=== PATIENT | female | born 1995 | race Caucasian/White ===

== ENCOUNTER 2017-10-29 15:27 | Inpatient (IN) | payer BC ==
[2017-10-29] MEDS ORDERED: Sodium Chloride 0.9% 1,000 ML IV STA (16:29)
[2017-10-29] MEDS ORDERED: Clindamycin 600mg/50ml NS 600 MG/50 ML BAG IVPB ONE ×2 (16:29→17:15)
--- NOTE | 2017-10-29 16:34 | ED PDOC ---
HPI: CCC, URI, Sore Throat Time Seen by Provider: 10/29/17 16:22 Chief Complaint (Nursing): ENT Problem History Per: Patient Onset/Duration Of Symptoms: Days (6) Current Symptoms Are (Timing): Still Present Location Of Pain: Throat Associated Symptoms: Fever, Sore Throat Severity: Moderate Pain Scale Rating Of: 3 Additional Complaint(s): Sore throat x 1 week. tx'ed with Augmentin 875 BID x 6 days but has gotten worse. Difficult swallowing but denies SOB. Able to swallow saliva. Past Medical History Vital Signs: Last Vital Signs Temp 97.7 F 10/31/17 08:34 Pulse 68 10/31/17 08:34 Resp 20 10/31/17 08:34 BP 94/61 L 10/31/17 08:34 Pulse Ox 97 10/31/17 08:34 - Medical History PMH: No Chronic Diseases - Family History Family History: States: Unknown Family Hx - Home Medications Home Medications: Ambulatory Orders Medication Instructions Recorded Sertraline [Zoloft] 100 mg PO DAILY 10/29/17 predniSONE [predniSONE Tab] 5 mg PO DAILY 10/29/17 - Allergies Allergies/Adverse Reactions: Allergies Allergy/AdvReac Type Severity Reaction Status Date / Time No Known Allergies Allergy Verified 10/29/17 16:12 Review of Systems Constitutional: Positive for: Fever ENT: Positive for: Throat Pain, Throat Swelling Respiratory: Negative for: Cough Gastrointestinal: Negative for: Nausea, Vomiting Physical Exam - Physical Exam Appears: Positive for: Non-toxic, No Acute Distress Skin: Positive for: Normal Color, Warm, DRY ENT: Positive for: Tonsillar Exudate, Tonsillar Swelling, Other (Tonsils touching unable to see uvula.) Neck: Positive for: Normal Cardiovascular/Chest: Positive for: Regular Rate, Rhythm Respiratory: Positive for: Normal Breath Sounds Extremity: Positive for: Normal ROM Neurologic/Psych: Positive for: Alert, Oriented - Laboratory Results Result Diagrams: 10/31/17 06:05 10/31/17 06:05 - ECG O2 Sat by Pulse Oximetry: 97 Disposition - Clinical Impression Clinical Impression: Tonsillitis, Peritonsillar abscess - Patient ED Disposition Is Patient to be Admitted: Transfer of Care - Disposition Disposition: Transfer of Care Disposition Time: 17:00 Condition: FAIR Patient Signed Over To: Conner Allison III Handoff Comments: Pending CT Neck, Labs, reeval
[2017-10-29] MEDS ORDERED: Dexamethasone 10 MG in Sodium Chloride 0.9% 50 ML IVPB STA (16:39)
[2017-10-29 17:15] LABS: BASO % 0.1 % (0.0-2.0); EOS % 0.1 % (0.0-4.0); HEMOGLOBIN 12.9 g/dL (12.0-16.0); LYMPH # 0.7 K/uL (1.0-4.3); LYMPH % 5.2 % (20.0-40.0); MEAN CELL VOLUME 89.9 fl (81.0-99.0); MEAN CORPUSCULAR HEMOGLOBIN 29.2 pg (27.0-31.0); MEAN CORPUSCULAR HGB CONC 32.5 g/dL (33.0-37.0); MEAN PLATELET VOLUME 6.9 fl (7.2-11.7); MONO # 0.4 K/uL (0.0-0.8); MONO % 2.8 % (0.0-10.0); NEUT # 11.7 K/uL (1.8-7.0); NEUT % 91.8 % (50.0-75.0); PLATELET COUNT 331 K/uL (130-400); RED CELL DISTRIBUTION WIDTH 12.9 % (11.5-14.5); WHITE BLOOD COUNT 12.8 K/uL (4.8-10.8)
--- NOTE | 2017-10-29 17:29 | ED PDOC ---
- Laboratory Results Result Diagrams: 10/29/17 17:04 10/29/17 17:04 - ECG O2 Sat by Pulse Oximetry: 97 (RA) Pulse Ox Interpretation: Normal Medical Decision Making Medical Decision Making: Time: 17:00 --Patient signed over to wi pending CT Head results, labs and reevaluation. Labs are negative for strep and influenza. pt tolerating secretions without drooling Disposition - Clinical Impression Clinical Impression: Tonsillitis - POA Present On Arrival: None - Disposition Disposition: Transfer of Care Disposition Time: 19:16 Condition: STABLE Forms: [facility] (Mongolian) Patient Signed Over To: Narinder Garcia Handoff Comments: pending CT result and dispo/ENT
[2017-10-29 17:44] LABS: ALBUMIN 4.6 g/dL (3.5-5.0); ALT/SGPT 24 U/L (9-52); AST/SGOT 28 U/L (14-36); BLOOD UREA NITROGEN 11 mg/dl (7-17); CALCIUM 9.2 mg/dL (8.4-10.2); GFR AFRICAN-AMERICAN > 60; GFR NON-AFRICAN AMERICAN > 60
[2017-10-29 17:57] LABS: ALB/GLOB RATIO 1.2 (1.0-2.1)
[2017-10-29] MEDS ORDERED: Sodium Chloride 0.9% 50 ML IV ONE (18:09)
[2017-10-29] MEDS ORDERED: Iohexol 300 100 ML IJ ONE (18:09)
[2017-10-29 19:18] LABS: BANDS 2 % (0-2); BASOPHIL 1 % (0-2); LYMPHOCYTE 7 % (20-50); MONOCYTE 2 % (0-10); NEUTROPHIL 88 % (42-75); PLATELET ESTIMATE NORMAL (NORMAL); TOTAL CELLS COUNTED 100
--- NOTE | 2017-10-29 19:25 | ED PDOC ---
- Laboratory Results Result Diagrams: 10/29/17 17:04 10/29/17 17:04 - ECG O2 Sat by Pulse Oximetry: 97 (RA) Pulse Ox Interpretation: Normal Medical Decision Making Medical Decision Making: Time: 19:00 Transfer of care endorsed to nc pending CT neck and reevaluation Time: 19:14 CT Neck soft tissue FINDINGS: Nasopharynx: Unremarkable. Oropharynx: There is tonsillar enlargement bilaterally with enhancement and striations, consistent with pharyngitis. There is a 1.6 x 0.4 cm low-attenuation noted on the right which could reflect an early abscess, (image 30). Larynx: Unremarkable. Normal epiglottis. Trachea: Unremarkable. Retropharyngeal space: Unremarkable. Submandibular/parotid glands: Unremarkable. Glands are normal in size. Thyroid: Unremarkable. No enlarged or calcified nodules. Bones/joints: No acute fracture. Soft tissues: See above. Vasculature: No acute findings. Lymph nodes: There are enlarged lymph nodes identified in both sides of the neck which are presumably related to inflammatory causes although nonspecific. Lung apices: Unremarkable as visualized. IMPRESSION: There is tonsillar enlargement bilaterally with enhancement and striations, consistent with pharyngitis. There is a 1.6 x 0.4 cm low-attenuation noted on the right which could reflect an early abscess. Reports revealed the possibility of an early abscess. Labs were reviewed and are normal. She was given a dose of Zosyn. Time: 20:25 --Consulted with Dr. Becerra --agreed with IV abx and decision to admit Time: 20:27 --Consulted with Dr. Diamond --Will admit patient to Dr. Diamond who is covering for Dr. Guerrero. Scribe Attestation: Documented by Radha Naidu, acting as a scribe for Narinder Garcia MD Provider Scribe Attestation: All medical record entries made by the Scribe were at my direction and personally dictated by me. I have reviewed the chart and agree that the record accurately reflects my personal performance of the history, physical exam, medical decision making, and the department course for this patient. I have also personally directed, reviewed, and agree with the discharge instructions and disposition Disposition Discussed With Dr.: Janes Diamond Counseled Patient/Family Regarding: Studies Performed, Diagnosis - Clinical Impression Clinical Impression: Tonsillitis, Peritonsillar abscess - POA Present On Arrival: None - Disposition Disposition: Hospitalized as Observation Patient Disposition Time: 20:27 Condition: FAIR Patient Signed Over To: Janes Diamond
[2017-10-30] MEDS: Dexamethasone 6 MG in Sodium Chloride 0.9% 50 ML IVPB SCH ×2 (00:18→07:03)
[2017-10-30] MEDS: Dextrose 5%/0.45% NS 1,000 ML IV SCH ×3 (00:18→14:05)
[2017-10-30] MEDS ORDERED: Pneumococcal 23-Valent Vaccine IM ONE ×2 (02:22→10:00)
[2017-10-30] MEDS ORDERED: Influenza Vaccine 18yr & older 0.5 ML/45 MCG SYR IM ONE ×2 (02:22→10:00)
[2017-10-30] MEDS ORDERED: Dexamethasone 6 MG in Sodium Chloride 0.9% 50 ML IVPB SCH (04:00)
[2017-10-30 06:33] LABS: HEMOGLOBIN 13.1 g/dL (12.0-16.0); MEAN CELL VOLUME 89.8 fl (81.0-99.0); MEAN CORPUSCULAR HEMOGLOBIN 29.6 pg (27.0-31.0); MEAN CORPUSCULAR HGB CONC 32.9 g/dL (33.0-37.0); RBC 4.44 Mil/uL (3.80-5.20); RED CELL DISTRIBUTION WIDTH 12.9 % (11.5-14.5); WHITE BLOOD COUNT 8.5 K/uL (4.8-10.8)
[2017-10-30 06:54] LABS: ALB/GLOB RATIO 1.2 (1.0-2.1); ALBUMIN 4.5 g/dL (3.5-5.0); ALT/SGPT 17 U/L (9-52); AST/SGOT 21 U/L (14-36); BLOOD UREA NITROGEN 9 mg/dl (7-17); CALCIUM 9.5 mg/dL (8.4-10.2); GFR AFRICAN-AMERICAN > 60; GFR NON-AFRICAN AMERICAN > 60; T4 8.96 ug/dl (5.5-11.0)
[2017-10-30 07:05] LABS: INR 1.2 (0.9-1.2); PARTIAL THROMBOPLASTIN TIME 29.4 Seconds (25.6-37.1); PROTHROMBIN TIME 13.5 Seconds (9.8-13.1)
[2017-10-30 07:07] LABS: T3 0.882 nmol/L (1.49-2.60)
[2017-10-30] MEDS ORDERED: Lidocaine/Epi 1% 1:100000 20 ML IJ ONE (09:00)
--- NOTE | 2017-10-30 10:03 | CT ---
PROCEDURE: CT NECK WITH CONTRAST HISTORY: r/o peritonsilar abscess COMPARISON: None TECHNIQUE: CT of the neck with intravenous contrast. Coronal and sagittal reformats generated. Intravenous contrast dose: 80 cc Visipaque 300 Radiation dose: DLP 469 mGy-cm This CT exam was performed using one or more of the following dose reduction techniques: Automated exposure control, adjustment of the mA and/or kV according to patient size, and/or use of iterative reconstruction technique. FINDINGS: NASOPHARYNX: Unremarkable. SUPRAHYOID NECK: There is bilateral enlargement of the tonsils with the right tonsillar superficial 10 x 8 mm hypodensity perceived. No definitive peripheral rim of intense enhancement disc suggested. - technical FX versus very early abscess formation here is a consideration. (Badger series 2, image 29 and 30) INFRAHYOID NECK: Unremarkable larynx (there is asymmetry of the aeration of the vallecular line-only air/gas is seen the right vallecula -none is seen in the left vallecula -this can be due to mucous and apposition), hypopharynx, and supraglottic space. Vocal cords intact. MASS: None. GLANDS: Parotid and submandibular glands unremarkable. Normal size thyroid gland, without nodule. LYMPH NODES: Bilateral nonspecific cervical lymph nodes present likely hyperplastic changes relating to patient's inferred tonsillitis CERVICAL SPINE: No fracture or focal lesion. VASCULAR STRUCTURES: Unremarkable. OTHER FINDINGS: None. IMPRESSION: Bilateral tonsillar enlargement with right superficial possible early abscess. The tonsil enlargement results in airway encroachment. The cervical lymph nodes present likely hyperplastic changes relating to patient's inferred tonsillitis Comments: This report is concordant with the preliminary V rad report Sign
[2017-10-30] MEDS: Dexamethasone 4 mg/1 ml IVP SCH ×2 (12:05→18:09)
--- NOTE | 2017-10-30 13:04 | CP.PCM.HP ---
History of Present Illness - History of Present Illness History of Present Illness: CC: Throat pain. 22 y/o F, with PMHx. 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 Pt c/o of increased throat discomfort and pain associated to glandular swelling b/l, pain was dull, sharp, continue, moderate intensity 6:10. Worsening symptoms: Difficulty swallowing, low grade fever (tactile while at home), headache, ears ache. Aggravated factor: Unable to eat. Pt denied: SOB, cough, CP, palpitations, abdominal pain, n/v/d, dizziness, weakness, sick contact, recent travel outside [facility]. Soft Tissue Neck CT shows: Tonsillar enlargement with R superficial possible early abscess. Present on Admission - Present on Admission Any Indicators Present on Admission: No Review of Systems - Constitutional Constitutional: Fever, Headache - EENT Eyes: Other (negative) Ears: Ear Pain Nose/Mouth/Throat: Sore Throat, Throat Swelling, Neck Pain - Cardiovascular Cardiovascular: Other (negative) - Respiratory Respiratory: Other (negative) - Gastrointestinal Gastrointestinal: Other (negative) - Genitourinary Genitourinary: Other (negative) - Musculoskeletal Musculoskeletal: Other (negative) - Integumentary Integumentary: Other (negative) - Neurological Neurological: Headaches - Psychiatric Psychiatric: Depression - Endocrine Endocrine: Other (negative) Past Patient History - Past Medical History & Family History Past Medical History?: Yes Pertinent Family History: Unknown - Past Social History Smoking Status: Never Smoked Alcohol: None Drugs: Denies Home Situation {Lives}: With Family - CARDIAC Hx Cardiac Disorders: No - PULMONARY Hx Respiratory Disorders: Yes Hx Asthma: Yes - NEUROLOGICAL Hx Neurological Disorder: Yes Hx Migraine: Yes - HEENT Hx HEENT Problems: No - RENAL Hx Chronic Kidney Disease: No - ENDOCRINE/METABOLIC Hx Endocrine Disorders: No - HEMATOLOGICAL/ONCOLOGICAL Hx Blood Disorders: No - INTEGUMENTARY Hx Dermatological Problems: No - MUSCULOSKELETAL/RHEUMATOLOGICAL Hx Musculoskeletal Disorders: No Hx Falls: No - GASTROINTESTINAL Hx Gastrointestinal Disorders: No - GENITOURINARY/GYNECOLOGICAL Hx Genitourinary Disorders: No - PSYCHIATRIC Hx Psychophysiologic Disorder: Yes Hx Depression: Yes Hx Substance Use: No - SURGICAL HISTORY Hx Surgeries: No - ANESTHESIA Hx Anesthesia: No Hx Anesthesia Reactions: No Hx Malignant Hyperthermia: No Has any member of the family had a problem w/ anesthesia?: No Meds Home Medications: Home Medication List Medication Instructions Recorded Confirmed Type Amoxicillin/Clavulanate [Augmentin 1 tab PO BID #14 tab 10/31/17 Rx 875 MG-125 MG] Ibuprofen [Motrin] 600 mg PO Q6 PRN #20 tab 10/31/17 Rx Methylprednisolone [Medrol Dose 4 mg PO DAILY #21 mg 10/31/17 Rx Pack (21 tabs)] Allergies/Adverse Reactions: Allergies Allergy/AdvReac Type Severity Reaction Status Date / Time No Known Allergies Allergy Verified 10/29/17 16:12 Physical Exam - Constitutional Appears: In Acute Distress (mild) - Head Exam Head Exam: NORMAL INSPECTION - Eye Exam Eye Exam: PERRL - ENT Exam Additional comments: Throat swelling, redness , enlarged Tonsils with exudates , L submandibular tenderness. - Respiratory Exam Respiratory Exam: Clear to Auscultation Bilateral - Cardiovascular Exam Cardiovascular Exam: REGULAR RHYTHM - GI/Abdominal Exam GI & Abdominal Exam: Normal Bowel Sounds, Soft - Extremities Exam Extremities exam: Positive for: normal inspection - Back Exam Back exam: NORMAL INSPECTION - Neurological Exam Neurological exam: Alert, Oriented x3 Additional comments: No motor sensory /deficit. - Psychiatric Exam Psychiatric exam: Normal Mood - Skin Skin Exam: Warm Results - Vital Signs Recent Vital Signs: Last Vital Signs Temp 97.9 F 10/30/17 08:26 Pulse 78 10/30/17 08:26 Resp 20 10/30/17 08:26 BP 102/66 10/30/17 08:26 Pulse Ox 98 10/30/17 08:26 reviewed Nicole - Labs Result Diagrams: 10/31/17 06:05 10/31/17 06:05 Labs: Laboratory Results - last 24 hr 10/29/17 10/29/17 10/29/17 17:04 17:04 17:04 WBC 12.8 H RBC 4.40 Hgb 12.9 Hct 39.5 MCV 89.9 MCH 29.2 MCHC 32.5 L RDW 12.9 Plt Count 331 MPV 6.9 L Neut % (Auto) 91.8 H Lymph % (Auto) 5.2 L [place] % (Auto) 2.8 Eos % (Auto) 0.1 Baso % (Auto) 0.1 Neut # 11.7 H Lymph # 0.7 L [place] # 0.4 Eos # 0.0 Baso # 0.0 Neutrophils % (Manual) 88 H Band Neutrophils % 2 Lymphocytes % (Manual) 7 L Monocytes % (Manual) 2 Basophils % (Manual) 1 Platelet Estimate Normal PT INR APTT Sodium 139 Potassium 4.2 Chloride 100 Carbon Dioxide 25 Anion Gap 18 BUN 11 Creatinine 0.6 L Est GFR ( Amer) > 60 Est GFR (Non-Af Amer) > 60 Random Glucose 95 Calcium 9.2 Total Bilirubin 0.5 AST 28 ALT 24 Alkaline Phosphatase 75 Total Protein 8.3 H Albumin 4.6 Globulin 3.8 Albumin/Globulin Ratio 1.2 Thyroxine (T4) Total T3 Infectious [place] Assay Negative Influenza Typ A,B (EIA) Grp A Beta Strep Ag 10/29/17 10/29/17 10/30/17 17:04 17:04 06:05 WBC 8.5 RBC 4.44 Hgb 13.1 Hct 39.9 MCV 89.8 MCH 29.6 MCHC 32.9 L RDW 12.9 Plt Count 370 MPV Neut % (Auto) Lymph % (Auto) [place] % (Auto) Eos % (Auto) Baso % (Auto) Neut # Lymph # [place] # Eos # Baso # Neutrophils % (Manual) Band Neutrophils % Lymphocytes % (Manual) Monocytes % (Manual) Basophils % (Manual) Platelet Estimate PT INR APTT Sodium Potassium Chloride Carbon Dioxide Anion Gap BUN Creatinine Est GFR ( Amer) Est GFR (Non-Af Amer) Random Glucose Calcium Total Bilirubin AST ALT Alkaline Phosphatase Total Protein Albumin Globulin Albumin/Globulin Ratio Thyroxine (T4) Total T3 Infectious [place] Assay Influenza Typ A,B (EIA) Negative for flu a/b Grp A Beta Strep Ag Negative 10/30/17 10/30/17 06:05 06:05 WBC RBC Hgb Hct MCV MCH MCHC RDW Plt Count MPV Neut % (Auto) Lymph % (Auto) [place] % (Auto) Eos % (Auto) Baso % (Auto) Neut # Lymph # [place] # Eos # Baso # Neutrophils % (Manual) Band Neutrophils % Lymphocytes % (Manual) Monocytes % (Manual) Basophils % (Manual) Platelet Estimate PT 13.5 H INR 1.2 APTT 29.4 Sodium 141 Potassium 4.3 Chloride 103 Carbon Dioxide 24 Anion Gap 18 BUN 9 Creatinine 0.5 L Est GFR ( Amer) > 60 Est GFR (Non-Af Amer) > 60 Random Glucose 148 H Calcium 9.5 Total Bilirubin 0.4 AST 21 ALT 17 Alkaline Phosphatase 72 Total Protein 8.3 H Albumin 4.5 Globulin 3.8 Albumin/Globulin Ratio 1.2 Thyroxine (T4) 8.96 Total T3 0.882 L Infectious [place] Assay Influenza Typ A,B (EIA) Grp A Beta Strep Ag reviewed J.P. - Impressions Impression: Soft Tissue Nck CT: Reviewed J.P. Assessment & Plan (1) Peritonsillar abscess Status: Acute Priority: High (2) Tonsillitis Status: Acute Priority: High (3) Bronchial asthma Status: Chronic (4) Migraine Status: Acute (5) Migraine Status: Chronic - Assessment and Plan (Free Text) Plan: Continue Clinda, Decadron, Toradol, Ultram and rest of Tx. For Abscess draining by solutions architect consultant - Date & Time Date: 10/30/17 Time: 10:00
[2017-10-30] MEDS: Clindamycin 600mg/50ml NS 600 MG/50 ML BAG IVPB SCH ×3 (14:02→21:47)
--- NOTE | 2017-10-30 23:43 | OP ---
PROCEDURE DATE: 10/30/2017 PREOPERATIVE DIAGNOSIS: Possible left peritonsillar abscess. POSTOPERATIVE DIAGNOSIS: Possible left peritonsillar abscess. PROCEDURE: Incision and drainage of peritonsillar abscess. SIGNIFICANT FINDINGS: Small amount of pus noted in the left peritonsillar area. DESCRIPTION OF PROCEDURE: The patient was placed in a seated position. The left peritonsillar area was injected with lidocaine with epinephrine. An incision was made in the left peritonsillar area using a #11 blade, clamp dissection was done. A small amount of pus was noted coming out and it was opened using clamp dissection. Bleeding was controlled with time. The patient tolerated the procedure well. It should be noted that on the CAT scan what they read as an abscess was actually some collection inside the tonsil itself. However, the patient's pain was on the left and symptomatically she had on the left, therefore the left side was explored. Benny Becerra MD MTDRicardo
[2017-10-30 23:58] VITALS: RESP 20
[2017-10-31] MEDS: Dexamethasone 4 mg/1 ml IVP SCH ×3 (00:39→12:24)
[2017-10-31] MEDS: Clindamycin 600mg/50ml NS 600 MG/50 ML BAG IVPB SCH (05:54)
[2017-10-31 06:35] LABS: HEMOGLOBIN 12.2 g/dL (12.0-16.0); MEAN CELL VOLUME 90.1 fl (81.0-99.0); MEAN CORPUSCULAR HEMOGLOBIN 29.9 pg (27.0-31.0); MEAN CORPUSCULAR HGB CONC 33.2 g/dL (33.0-37.0); RBC 4.07 Mil/uL (3.80-5.20); RED CELL DISTRIBUTION WIDTH 12.7 % (11.5-14.5); WHITE BLOOD COUNT 13.7 K/uL (4.8-10.8)
[2017-10-31 07:02] LABS: BLOOD UREA NITROGEN 12 mg/dl (7-17); GFR AFRICAN-AMERICAN > 60; GFR NON-AFRICAN AMERICAN > 60
[2017-10-31 08:35] VITALS: BP 94/61; PULSE 68; TEMP 97.7; O2SAT 97
--- NOTE | 2017-10-31 13:20 | CP.PCM.PN ---
Subjective - Date & Time of Evaluation Date of Evaluation: 10/31/17 - Subjective Subjective: F/U Peritonsillar abscess Left tonsillar pain decreased Objective - Vital Signs/Intake and Output Vital Signs (last 24 hours): Temp Pulse Resp BP Pulse Ox 97.7 F 68 20 94/61 L 97 10/31/17 08:34 10/31/17 08:34 10/31/17 08:34 10/31/17 08:34 10/31/17 10:51 - Medications Medications: Current Medications Dexamethasone (Decadron Inj) 4 mg IVP Q6H [facility] Last Admin: 10/31/17 12:24 Dose: 4 mg Clindamycin Phosphate (Cleocin In Normal Saline) 600 mg in 50 mls @ 50 mls/hr IVPB Q8@0600,1400,2200 [facility] PRN Reason: Protocol Last Admin: 10/31/17 05:54 Dose: 50 mls/hr Ketorolac Tromethamine (Toradol) 15 mg IVP Q6 PRN PRN Reason: Pain, severe (8-10) Last Admin: 10/31/17 06:20 Dose: 15 mg Sertraline HCl (Zoloft) 100 mg PO DAILY [facility] Last Admin: 10/31/17 08:31 Dose: 100 mg Tramadol HCl (Ultram) 50 mg PO Q6 PRN PRN Reason: Pain, moderate (4-7) Last Admin: 10/31/17 11:30 Dose: 50 mg - Labs Labs: 10/31/17 06:05 10/31/17 06:05 PT 13.5 Seconds (9.8-13.1) H 10/30/17 06:05 INR 1.2 (0.9-1.2) 10/30/17 06:05 APTT 29.4 Seconds (25.6-37.1) 10/30/17 06:05 - Constitutional Appears: No Acute Distress - Head Exam Head Exam: NORMAL INSPECTION - Eye Exam Eye Exam: PERRL - ENT Exam Additional comments: Throat less swelling, redness, enlarged tonsils with exudates, L mandibular tenderness. - Neck Exam Additional comments: Left submandibular tenderness - Respiratory Exam Respiratory Exam: Clear to Ausculation Bilateral - Cardiovascular Exam Cardiovascular Exam: REGULAR RHYTHM - GI/Abdominal Exam GI & Abdominal Exam: Soft, Normal Bowel Sounds - Extremities Exam Extremities Exam: Normal Inspection - Back Exam Back Exam: NORMAL INSPECTION - Neurological Exam Neurological Exam: Alert, Oriented x3. absent: Motor Sensory Deficit - Psychiatric Exam Psychiatric exam: Normal Mood - Skin Skin Exam: Warm Assessment and Plan (1) Peritonsillar abscess Assessment & Plan: Left Status: Acute (2) Tonsillitis Status: Acute (3) Bronchial asthma Status: Chronic (4) Migraine Status: Chronic - Assessment and Plan (Free Text) Plan: s/p drainage L Tonsillar abcess yesterday 10-30-[address] Becerra, Patient is improved and stable to be discharged , see DEC , Patient on Clinda , Decadron , Toradol , f/u PMD Dr Guerrero and Dr Becerra next week.
--- NOTE | 2017-11-01 08:09 | PQF GENQUE ---
Dr. Diamond, Please clarify type of asthma: if known: i.e. Mild intermittent Mild persistent Moderate persistent Severe persistent With bronchitis(please clarify acuity of bronchitis) With chronic lung disease (please document specific chronic lung disease) Other (please specify) Clinically unable to determine Unknown 2. Please clarify acuity of asthma: Uncomplicated With exacerbation(acute) With status asthmaticus Other (please specify) Clinically unable to determine Unknown H and P: PE:Respiratory Exam: Clear to Auscultation Bilateral ; diagnoses include: Peritonsillar abscess: Acute ; Tonsillitis:Acute Bronchial asthma Status: Chronic Dexamethasone IV This form is a permanent part of the medical record Clarification of your documentation is requested to better reflect the severity of illness and intensity of treatment of your patient. Indicators present [] Specify: [] [] Specify: [] [] Specify: [] [] Specify: [] Location in the medical record that reflects the above clinical findings: [] Treatment Provided: [] PHYSICIAN'S RESPONSE Based on your medical judgment of the clinical indicators outlined above please clarify the following: [] Practitioner response [] If unable to determine, please check the box, sign and date. Present On Admission (POA) Indicator: [] Present at the time of admission [] Not present at the time of admission [] Clinically Undetermined In responding to this query, please exercise your independent professional judgment. The fact that a question is asked does not imply that any particular answer is desired or expected. Thank you for your clarification on this documentation. If you have any questions please call. * Thank you, Anabela Aviles RN ext. #[phone] MTDD
--- NOTE | 2017-11-01 09:40 | CP.PCM.DIS ---
Provider - Provider Date of Admission: 10/30/17 14:26 Attending physician: Janes Diamond MD Consults: ENT Time Spent in preparation of Discharge (in minutes): 35 Diagnosis - Discharge Diagnosis (1) Peritonsillar abscess Status: Acute Priority: High (2) Tonsillitis Status: Acute Priority: High (3) Bronchial asthma Status: Chronic (4) Migraine Status: Chronic (5) Migraine Status: Deleted Hospital Course - Lab Results Lab Results: Micro Results 10/29/17 17:04 Throat Group A Strep Throat Culture - Final NO BETA STREP GROUP A ISOLATED. Most Recent Lab Values WBC 13.7 K/uL (4.8-10.8) H D 10/31/17 06:05 RBC 4.07 Mil/uL (3.80-5.20) 10/31/17 06:05 Hgb 12.2 g/dL (12.0-16.0) 10/31/17 06:05 Hct 36.6 % (34.0-47.0) 10/31/17 06:05 MCV 90.1 fl (81.0-99.0) 10/31/17 06:05 MCH 29.9 pg (27.0-31.0) 10/31/17 06:05 MCHC 33.2 g/dL (33.0-37.0) 10/31/17 06:05 RDW 12.7 % (11.5-14.5) 10/31/17 06:05 Plt Count 348 K/uL (130-400) 10/31/17 06:05 MPV 6.9 fl (7.2-11.7) L 10/29/17 17:04 Neut % (Auto) 91.8 % (50.0-75.0) H 10/29/17 17:04 Lymph % (Auto) 5.2 % (20.0-40.0) L 10/29/17 17:04 Baldwin % (Auto) 2.8 % (0.0-10.0) 10/29/17 17:04 Eos % (Auto) 0.1 % (0.0-4.0) 10/29/17 17:04 Baso % (Auto) 0.1 % (0.0-2.0) 10/29/17 17:04 Neut # 11.7 K/uL (1.8-7.0) H 10/29/17 17:04 Lymph # 0.7 K/uL (1.0-4.3) L 10/29/17 17:04 Baldwin # 0.4 K/uL (0.0-0.8) 10/29/17 17:04 Eos # 0.0 K/uL (0.0-0.7) 10/29/17 17:04 Baso # 0.0 K/uL (0.0-0.2) 10/29/17 17:04 Neutrophils % (Manual) 88 % (42-75) H 10/29/17 17:04 Band Neutrophils % 2 % (0-2) 10/29/17 17:04 Lymphocytes % (Manual) 7 % (20-50) L 10/29/17 17:04 Monocytes % (Manual) 2 % (0-10) 10/29/17 17:04 Basophils % (Manual) 1 % (0-2) 10/29/17 17:04 Platelet Estimate Normal (NORMAL) 10/29/17 17:04 PT 13.5 Seconds (9.8-13.1) H 10/30/17 06:05 INR 1.2 (0.9-1.2) 10/30/17 06:05 APTT 29.4 Seconds (25.6-37.1) 10/30/17 06:05 Sodium 143 mmol/l (132-148) 10/31/17 06:05 Potassium 4.4 MMOL/L (3.6-5.0) 10/31/17 06:05 Chloride 104 mmol/L (98-107) 10/31/17 06:05 Carbon Dioxide 27 mmol/L (22-30) 10/31/17 06:05 Anion Gap 16 (10-20) 10/31/17 06:05 BUN 12 mg/dl (7-17) 10/31/17 06:05 Creatinine 0.6 mg/dl (0.7-1.2) L 10/31/17 06:05 Est GFR ( Amer) > 60 10/31/17 06:05 Est GFR (Non-Af Amer) > 60 10/31/17 06:05 Random Glucose 141 mg/dL (65-105) H 10/31/17 06:05 Calcium 9.0 mg/dL (8.4-10.2) 10/31/17 06:05 Total Bilirubin 0.4 mg/dl (0.2-1.3) 10/30/17 06:05 AST 21 U/L (14-36) 10/30/17 06:05 ALT 17 U/L (9-52) 10/30/17 06:05 Alkaline Phosphatase 72 U/L (38-126) 10/30/17 06:05 Total Protein 8.3 G/DL (6.3-8.2) H 10/30/17 06:05 Albumin 4.5 g/dL (3.5-5.0) 10/30/17 06:05 Globulin 3.8 gm/dL (2.2-3.9) 10/30/17 06:05 Albumin/Globulin Ratio 1.2 (1.0-2.1) 10/30/17 06:05 Thyroxine (T4) 8.96 ug/dl (5.5-11.0) 10/30/17 06:05 Total T3 0.882 nmol/L (1.49-2.60) L 10/30/17 06:05 Infectious Baldwin Assay Negative (NEGATIVE) 10/29/17 17:04 Influenza Typ A,B (EIA) Negative for flu a/b (NEGATIVE) 10/29/17 17:04 Grp A Beta Strep Ag Negative (NEGATIVE) 10/29/17 17:04 yrs - Hospital Course Hospital Course: 22 ys old female AD for Sore Throat for one week [employer], patient was taking Augmentin and Prednisone with no improvement with increased throat discomfort , difficulty swall.owing headache patient was seen ER [facility] and [facility]. - Date & Time of H&P Date of H&P: 10/30/17 Time of H&P: 10:00 Discharge Exam - Head Exam Head Exam: NORMAL INSPECTION - Eye Exam Eye Exam: PERRL - ENT Exam Additional comments: Throat less swelling, redness, enlarged tonsils with exudates, L mandibular tenderness. - Neck Exam Neck exam: Tenderness (L submandibular) - Respiratory Exam Additional comments: Clear to Ausculation bilateral - Cardiovascular Exam Cardiovascular Exam: REGULAR RHYTHM - GI/Abdominal Exam GI & Abdominal Exam: Normal Bowel Sounds, Soft - Extremities Exam Extremities exam: normal inspection - Back Exam Back exam: NORMAL INSPECTION - Neurological Exam Neurological exam: Alert, Oriented x3 Additional comments: No motor sensory deficit. - Psychiatric Exam Psychiatric exam: Normal Mood - Skin Skin Exam: Warm Discharge Plan - Discharge Medications Prescriptions: Amoxicillin/Clavulanate [Augmentin 875 MG-125 MG] 1 tab PO BID #14 tab Methylprednisolone [Medrol Dose Pack (21 tabs)] 4 mg PO DAILY #21 mg Ibuprofen [Motrin] 600 mg PO Q6 PRN #20 tab PRN Reason: Pain, Severe (8-10) - Follow Up Plan Condition: FAIR Disposition: HOME/ ROUTINE Patient education suggested?: Yes Instructions: Peritonsillar Abscess (DC) Additional Instructions: Complete all antibiotics. F/u with ENT, Dr. Becerra in 1 week and with [facility] in 1-2 weeks. Referrals: Benny Becerra MD [Staff Provider] - Moe Guerrero MD [Family Provider] -
== END 2017-10-31 13:59 | disposition home or self-care (01) | DRG 134 ==
LOC: H.ER 15:27 → H.ERHOLD 20:27 → H.MEDSURG1 22:20 → OBSVTOIN 10-30 14:26
PROVIDERS: ADMIT Internal Medicine Pulmonary Disease; ATTEND Internal Medicine Pulmonary Disease
PROC: 0C9P0ZZ Drainage of Tonsils, Open Approach (ICD-10-PCS; principal; 2017-10-30)
DX: J36 Peritonsillar abscess (principal); F32.9 Major depressive disorder, single episode, unspecified; G43.909 Migraine, unspecified, not intractable, without status migrainosus; J45.909 Unspecified asthma, uncomplicated